=== PATIENT | male | born 1950 | race Caucasian/White ===

== ENCOUNTER 2019-04-06 07:17 | Day surgery (SDC) | payer MEDICARE, OTHER ==
[~2019-04-06] VITALS: Ht 188 cm; Wt 94.8 kg
[~2019-04-06 07:17] MED LIST: ASPIR 8181 MG PO; ATORVASTATIN CA80 MG PO; LISINOPRIL-HCT1 EAC1 PO; METOPROLOL SUCC25 MG PO; [UNRECOGNIZED DRUG - OTHER] PO
--- NOTE | 2019-04-06 09:12 | NUR ---
04/06/19 0912 Gloria Armendariz 0906- PT ARRIVES TO PACU AROUSABLE TO VOICE. FALLS INSTANTLY BACK TO SLEEP. RESP EVEN AND UNLABORED. OXYGEN SAT LOW TO MID 90'S ON 2L VIA NC.
--- NOTE | 2019-04-07 15:12 | OR ---
[facility] [address] [place], [place] [address] Signed DATE OF OPERATION: 04/06/2019 SURGEON: Franchesca Farias MD PREOPERATIVE DIAGNOSIS: Colon screening. POSTOPERATIVE DIAGNOSES: 1. Small polyp of cecum (excised). 2. Minimal diverticula. PROCEDURE: Total colonoscopy to cecum with cold morcellation polypectomy x1. ANESTHESIA: Intravenous sedation, fentanyl 100 mcg, and Versed 5 mg. INDICATION: This 68-year-old white man is a patient of Dr. Mary Del Valle as well as Dr. James club room attendant. He has undergone colonoscopy in the past, last in 2008. He is here at this time to undergo colonoscopy. He understands the risks of bleeding, infection, and perforation. He has no family history of colon cancer and no symptoms currently. FINDINGS: The prep was excellent. Complete colonoscopy was undertaken to the cecum. There was a small polyp of the proximal ascending colon at the junction of the cecum, which was excised. It may be hyperplastic. There were few scattered diverticula of the sigmoid, but no other findings of concern. DESCRIPTION OF PROCEDURE: The patient was brought to endoscopy suite and placed in lateral decubitus position given intravenous sedation to the point of slurred speech and nystagmus. Digital rectal examination was normal. An Olympus video colonoscope was passed in the rectum and manipulated throughout the colon ultimately intubating the cecum itself. The ileocecal valve and appendiceal orifice were normal. Scope was withdrawn and a very small polyp was noted at the right colon cecal junction, which was excised with cold morcellation technique completely. The scope was further withdrawn. Remaining colon was normal except for a few scattered small diverticula of the sigmoid. Retroflexed view of the rectum was normal. Scope was Electronically Signed By: FRANCHESCA FARIAS MD 04/07/19 1512 PATIENT NAME: YAJAIRA LOOMIS OPERATIVE REPORT DATE OF : 52 REPORT #: [id number] PHYSICIAN: FRANCHESCA FARIAS MD PCP: MARY DEL VALLE MD REPORT IS CONFIDENTIAL AND NOT TO BE RELEASED WITHOUT AUTHORIZATION [facility] [address] [place], [place] [address] Signed removed and the patient was taken to recovery room in good condition. CONCLUDING DIAGNOSES: Small polyp at cecal area. Minimal diverticula. PLAN: If adenoma is noted on the polyp, repeat in 5 years. If hyperplastic, 10 years, sooner if clinically indicated. He will return to the ongoing care of Dr. Del Valle otherwise. MD SIMONE Moncada/MODL /[id number] cc: Mary Del Valle MD Copies: ~ Electronically Signed By: FRANCHESCA FARIAS MD 04/07/19 1512 PATIENT NAME: YAJAIRA LOOMIS OPERATIVE REPORT DATE OF : 52 REPORT #: [id number] PHYSICIAN: FRANCHESCA FARIAS MD PCP: MARY DEL VALLE MD REPORT IS CONFIDENTIAL AND NOT TO BE RELEASED WITHOUT AUTHORIZATION
--- NOTE | 2019-04-07 16:15 | PATH ---
[facility] [address] [place] [id number] Signed SPECIMEN(S): A CECAL POLYP SPECIMEN SOURCE: A. CECAL POLYP CLINICAL HISTORY: Surveillance colonoscopy, possible polyp, diverticula. MICROSCOPIC DESCRIPTION: Histologic sections of all submitted blocks are examined by light microscopy. These findings, together with the gross examination, support the pathologic diagnosis. FINAL PATHOLOGIC DIAGNOSIS: Mucosa, cecum, biopsy: - Hyperplastic polyp. GROSS DESCRIPTION: The specimen, labeled "JS, cecum polyp," is received in formalin and consists of two pink-lerma soft tissue fragments that measure 0.1-0.2 cm in greatest dimension. The specimen is entirely submitted in cassette (A1). EDIL (under the direct supervision of a pathologist) The Gross Description was prepared using a voice recognition system. The report was reviewed for accuracy; however, sound-alike word errors, addition and/or deletions may occur. If there is any question about this report, please contact Client Services. PERFORMING LABORATORY: The technical component was performed by [facility] [address] (User Experience Developer: Lisa Anton MD; CLIA# [id number]). Professional interpretation was performed by [facility], [address] [address] (CLIA# [id number]). Diagnostician: Alex Alford MD Pathologist Electronically Signed 04/07/2019 Copies: PATIENT NAME: VLADISLAVYAJAIRA DANUTA PATHOLOGY DATE OF : 52 REPORT #: [id number] PHYSICIAN: JASON PATHOLOGY PCP: ALL FULTON MD REPORT IS CONFIDENTIAL AND NOT TO BE RELEASED WITHOUT AUTHORIZATION [address] [address] Signed ~ PATIENT NAME: LOOMISYAJAIRA DANUTA PATHOLOGY DATE OF : 52 REPORT #: [id number] PHYSICIAN: JASON PATHOLOGY PCP: ALL FULTON MD REPORT IS CONFIDENTIAL AND NOT TO BE RELEASED WITHOUT AUTHORIZATION
== END 2019-04-06 10:15 | disposition home or self-care (01) ==
LOC: DS 07:17 → OPS 07:17 → DS 08:30 → OPS 08:30
PROVIDERS: Surgery
PROC: 0DBH8ZZ Excision of Cecum, Via Natural or Artificial Opening Endoscopic (ICD-10-PCS; principal; 2019-04-06 08:30)
DX: Z12.11 Encounter for screening for malignant neoplasm of colon (principal); K63.5 Polyp of colon; K57.30 Diverticulosis of large intestine without perforation or abscess without bleeding; I10 Essential (primary) hypertension; Z79.899 Other long term (current) drug therapy; Z79.82 Long term (current) use of aspirin; Z98.890 Other specified postprocedural states; Z95.5 Presence of coronary angioplasty implant and graft
CPT/HCPCS: 99153; G0500; J2250; J3010; J7121